=== PATIENT | male | born 1975 | race Caucasian/White ===

== ENCOUNTER 2017-08-15 05:03 | Emergency (ER) | payer OTHER ==
[~2017-08-15] VITALS: Ht 172.7 cm; Wt 90.7 kg
[2017-08-15 05:10] VITALS: BP 153/99
--- NOTE | 2017-08-15 05:13 | NUR ---
to bed # 2 ambulatory , report given to Cinthya Stock.
--- NOTE | 2017-08-15 05:29 | NUR ---
PATIENT IS A 42 Y/O MALE WHO PRESENTS TO THE ED C/O FINGER PAIN. PT STATES THAT HE WAS SWIMMING X1 WEEK AGO AND SLAMMED R RING FINGER. PT REPORTS 5/10 ACHING FINGER PAIN THAT DOES NOT RADIATE. CMS INTACT. NO OBVIOUS TRAUMA OR DEFORMITY NOTED. PT DENIES CP, SOB, N/V/D. PT AAOX4, RR EVEN/UNLABORED. PT REPOSITIONED FOR COMFORT, BED IN LOWEST POSITION. ER MD GALLARDO SECHRIST NOTIFIED. WILL CONTINUE TO MONITOR.
--- NOTE | 2017-08-15 05:40 | NUR ---
XRAY AT BEDSIDE FOR INTERVENTION.
[2017-08-15 06:09] VITALS: BP 147/81
--- NOTE | 2017-08-15 06:09 | NUR ---
Patient discharged with v/s stable. Written and verbal after care instructions given and explained. Patient verbalized understanding. Ambulatory with steady gait. All questions addressed prior to discharge. Advised to follow up with PMD.
== END 2017-08-15 06:09 | disposition home or self-care (01) ==
LOC: MED 05:03
DX: S63.614A Unspecified sprain of right ring finger, initial encounter (principal); W23.0XXA Caught, crushed, jammed, or pinched between moving objects, initial encounter; Y93.11 Activity, swimming; Y99.8 Other external cause status; Y92.89 Other specified places as the place of occurrence of the external cause
CPT/HCPCS: 73140; 99284